=== PATIENT | female | born 1975 | race American Indian/Alaskan Native ===

== ENCOUNTER 2018-10-11 11:07 | Emergency (ER) | payer MEDICARE ==
[2018-10-11] MEDS ORDERED: NACL 0.9% 1000 ML 1,000 ML IV ONE ×2 (11:54→14:15)
[2018-10-11] MEDS ORDERED: ZOFRAN IV ONE (11:55)
[2018-10-11 12:17] LABS: Basophils % (Auto) 0.5 % (0.0-1.8); Eosinophils % (Auto) 0.1 % (0.0-4.3); Hematocrit 38.6 % (30.3-42.9); Hemoglobin 13.3 gm/dl (10.1-14.3); Lymphocytes # (Auto) 0.6 K/mm3 (1.2-5.4); Lymphocytes % (Auto) 19.1 % (13.4-35.0); Mean Corpuscular HGB Conc 34 % (30-34); Mean Corpuscular Volume 88 fl (79-97); Monocytes # (Auto) 0.4 K/mm3 (0.0-0.8); Monocytes % (Auto) 12.3 % (0.0-7.3); Platelet Count 225 K/mm3 (140-440); Red Blood Count 4.38 M/mm3 (3.65-5.03); Red Cell Distribution Width 15.5 % (13.2-15.2)
[2018-10-11 12:25] LABS: INR 1.02 (0.87-1.13)
--- NOTE | 2018-10-11 12:39 | XRay Report ---
ABDOMEN, 2 views: History: Abdominal pain. There is no evidence of free air beneath the diaphragms. The gas pattern within the abdomen is unremarkable. There is no evidence of bowel dilatation, significant air-fluid levels, or pathologic calcifications. Organ shadows are unremarkable. IMPRESSION: Unremarkable abdomen.
[2018-10-11 12:40] LABS: Alanine Aminotransferase 16 units/L (7-56); Albumin 3.6 g/dL (3.9-5); BUN/Creatinine Ratio 13; Blood Urea Nitrogen 8 mg/dL (7-17); Calcium 8.8 mg/dL (8.4-10.2); Hemolysis Index 4
--- NOTE | 2018-10-11 12:40 | XRay Report ---
ROUTINE CHEST, TWO VIEWS: HISTORY: Weakness. The trachea, heart, mediastinal contour, lung gonzales and bony thorax are unremarkable. IMPRESSION: Unremarkable chest x-ray.
--- NOTE | 2018-10-11 12:42 | Emergency Department Report ---
HPI - General Chief Complaint: Weakness Time Seen by Provider: 10/11/18 11:36 - HPI HPI: 43 year-old female presents to the emergency department with a complaint of nausea and vomiting, shortness of breath, generalized body aches, abdominal pain, and generalized weakness that has been going on for the past 4 days. She has a past medical history of asthma, diabetes, anemia, HIV. She's been out all of her medications for the past 2 months. She has not taken anything for her symptoms prior to presentation. No recent travel or sick contacts at home. She denies any fever, chest pain, or diaphoresis. ED Past Medical Hx - Past Medical History Previous Medical History?: Yes Hx Diabetes: Yes Hx Asthma: Yes Hx HIV: Yes Additional medical history: anemia - Surgical History Past Surgical History?: Yes Additional Surgical History: apendectomy, c section - Social History Smoking Status: Never Smoker Substance Use Type: None - Medications Home Medications: Home Medications Medication Instructions Recorded Confirmed Last Taken Type Ondansetron [Zofran Odt] 4 mg PO Q8HR PRN #12 tab.rapdis 10/11/18 Unknown Rx ED Review of Systems ROS: Stated complaint: GENERAL ILLNESS Other details as noted in HPI Constitutional: weakness. denies: chills, fever Eyes: denies: eye pain, vision change ENT: denies: ear pain, throat pain Respiratory: shortness of breath. denies: wheezing Cardiovascular: denies: chest pain, edema Gastrointestinal: abdominal pain, nausea, vomiting Genitourinary: denies: dysuria, discharge Musculoskeletal: myalgia. denies: joint swelling Skin: denies: rash, lesions Neurological: denies: headache, numbness Physical Exam - Physical Exam Vital Signs: Vital Signs 10/11/18 11:21 Temperature 98.2 F Pulse Rate 75 Respiratory 16 Rate Blood Pressure 122/67 O2 Sat by Pulse 100 Oximetry Physical Exam: GENERAL: The patient is well-developed well-nourished. HENT: Normocephalic. Atraumatic. Patient has moist mucous membranes. EYES: Extraocular motions are intact. NECK: Supple. Trachea is midline. CHEST/LUNGS: Clear to auscultation. mild tachypnea but no accessory muscle use. No cough heard during exam. There is no respiratory distress noted. HEART/CARDIOVASCULAR: Regular. There is no tachycardia. There is no murmur. ABDOMEN: Abdomen is soft, nontender. Patient has normal bowel sounds. There is no abdominal distention. SKIN: Skin is warm and dry. NEURO: The patient is awake, alert, and oriented. The patient is cooperative. The patient has no focal neurologic deficits. The patient has normal speech. CN II - XII grossly intact. Normal gait. MUSCULOSKELETAL: There is no tenderness or deformity. There is no limitation range of motion. There is no evidence of acute injury. ED Course Vital Signs 10/11/18 11:21 Temperature 98.2 F Pulse Rate 75 Respiratory 16 Rate Blood Pressure 122/67 O2 Sat by Pulse 100 Oximetry ED Medical Decision Making - Lab Data Result diagrams: 10/11/18 11:57 10/11/18 11:57 - EKG Data -: EKG Interpreted by Me EKG shows normal: sinus rhythm, axis, intervals, QRS complexes (Q waves in the septal leads), ST-T waves Rate: normal - EKG Data When compared to previous EKG there are: previous EKG unavailable Interpretation: other (sinus rhythm, Q waves to the septal leads) - Radiology Data Radiology results: image reviewed interpreted by me: Chest xray does not show any pneumonia, pleural effusions, pneumothorax, or foca l consolidation. Abdominal x-ray shows nonspecific, non-obstructive bowel gas. - Medical Decision Making This patient presents with the complaint of generalized weakness, N/V, SOB, abd pain. She has not had any vomiting while in the ED. CXR and Abd x-rays are unremarkable. Labs have been mostly unremarkable as well including CBC, CMP, Lipase and U/A except for signs of dehydration with 80 ketones. She was given zofran and 2L of IVF. Vitals stable throughout her ED course. She was able to pass an oral challenge. After the treatments, the patient says she is feeling greatly improved. She was given a prescription for zofran and encouraged to increase oral intake. She was given outpatient referrals for PCP. She will return to the ED with any worsening of her symptoms or any acute distress. Regarding her weakness, it is generalized without any focal or lateralizing deficits. No complaints of any headache. I did not feel CT imaging of the head was necessary at this time. She says her SOB has resolved. No signs of any tachypnea or respiratory distress. She is afebrile. She is low on the Wells score criteria and PERC negative. - Differential Diagnosis viral syndrome, pneumonia, colitis, anemia Critical Care Time: No Critical care attestation.: If time is entered above; I have spent that time in minutes in the direct care of this critically ill patient, excluding procedure time. ED Disposition Clinical Impression: Dehydration, Shortness of breath, Generalized weakness Nausea & vomiting Qualifiers: Vomiting type: unspecified Vomiting Intractability: non-intractable Qualified Code(s): R11.2 - Nausea with vomiting, unspecified Disposition: DC- TO HOME OR SELFCARE Is pt being admited?: No Condition: Stable Instructions: Dehydration (ED), Acute Nausea and Vomiting (ED), Weakness (ED), Dyspnea (ED) Additional Instructions: Please follow up with a primary care physician in the next few days. Increase your rehydration. Return to the emergency Department with any worsening of your symptoms or any acute distress. Prescriptions: Ondansetron [Zofran Odt] 4 mg PO Q8HR PRN #12 tab.rapdis PRN Reason: Nausea Referrals: [facility] [Outside] - 2-3 Days CHET LOWE MD [Staff Physician] - 2-3 Days Time of Disposition: 16:00
[2018-10-11 14:02] LABS: Bacteria,Urine 1+ /HPF (Negative); Bilirubin,Urine NEG (Negative); Blood,Urine NEG (Negative); Color,Urine Amber (Yellow); Mucus,Urine FEW /HPF
[2018-10-11 14:51] VITALS: BP 111/63
== END 2018-10-11 16:19 | disposition home or self-care (01) ==
LOC: ED 11:07
DX: E86.0 Dehydration (principal); R06.02 Shortness of breath; R53.1 Weakness; D64.9 Anemia, unspecified; J45.909 Unspecified asthma, uncomplicated; Z90.89 Acquired absence of other organs
CPT/HCPCS: 36415; 71046; 74019; 80053; 81001; 82962; 83690; 84443; 84484; 84703; 85025; 85610; 93005; 93010; 96361; 96374; 99285; J2405; J7030

== ENCOUNTER 2018-10-17 18:40 | Emergency (ER) | payer MEDICARE ==
[2018-10-17] MEDS ORDERED: MORPHINE IV ONE (20:23)
[2018-10-17] MEDS ORDERED: ZOFRAN IV ONE (20:23)
[2018-10-17] MEDS ORDERED: NACL 0.9% 1000 ML 1,000 ML IV ONE (20:23)
--- NOTE | 2018-10-17 20:26 | Emergency Department Report ---
ED Abdominal Pain HPI - General Chief Complaint: Chest Pain Stated Complaint: N/V Time Seen by Provider: 10/17/18 20:17 Source: patient, EMS Mode of arrival: Stretcher Limitations: No Limitations - History of Present Illness Initial Comments: Patient is 43-year-old female with history of HIV/AIDS. Patient presented to the ER complaining of bilateral chest pain and epigastric pain for the last 3 days. Patient stated that she has been having some shortness of breath also. Patient is actively vomiting in the emergency room. Patient stated that she had chills last night with no fever. Patient stated that she is compliant with her medication. MD Complaint: abdominal pain Location: epigastric Migration to: no migration Severity scale (0 -10): 9 - Related Data Previous Rx's Medication Instructions Recorded Last Taken Type Ondansetron [Zofran Odt] 4 mg PO Q8HR PRN #12 tab.rapdis 10/11/18 Unknown Rx Allergies Allergy/AdvReac Type Severity Reaction Status Date / Time No Known Allergies Allergy Verified 10/11/18 11:21 ED Review of Systems ROS: Stated complaint: N/V Other details as noted in HPI Comment: All other systems reviewed and negative Constitutional: denies: chills, fever Respiratory: shortness of breath. denies: SOB with exertion, SOB at rest, wheezing Cardiovascular: chest pain. denies: palpitations, dyspnea on exertion, orthopnea Gastrointestinal: abdominal pain, nausea, vomiting. denies: diarrhea, constipation, hematemesis, melena, hematochezia Musculoskeletal: denies: back pain Neurological: denies: headache, weakness ED Past Medical Hx - Past Medical History Previous Medical History?: Yes Hx Diabetes: Yes Hx Asthma: Yes Hx HIV: Yes Additional medical history: anemia - Surgical History Past Surgical History?: Yes Additional Surgical History: apendectomy, c section - Social History Smoking Status: Never Smoker Substance Use Type: Marijuana - Medications Home Medications: Home Medications Medication Instructions Recorded Confirmed Last Taken Type Ondansetron [Zofran Odt] 4 mg PO Q8HR PRN #12 tab.rapdis 10/11/18 Unknown Rx ED Physical Exam - General Limitations: No Limitations General appearance: alert, in no apparent distress - Head Head exam: Present: atraumatic, normocephalic, normal inspection - Eye Eye exam: Present: normal appearance, PERRL - ENT ENT exam: Present: normal exam, normal orophraynx, mucous membranes moist - Neck Neck exam: Present: normal inspection, full ROM. Absent: tenderness, men ingismus, lymphadenopathy, thyromegaly - Respiratory Respiratory exam: Present: normal lung sounds bilaterally - Cardiovascular Cardiovascular Exam: Present: regular rate, normal rhythm, normal heart sounds - GI/Abdominal GI/Abdominal exam: Present: soft, normal bowel sounds. Absent: distended, tenderness, guarding, rebound, rigid, organomegaly, mass, bruit, pulsatile mass, hernia - Extremities Exam Extremities exam: Present: normal inspection, full ROM, normal capillary refill - Back Exam Back exam: Present: normal inspection, full ROM. Absent: tenderness, CVA tenderness (R), CVA tenderness (L), muscle spasm, paraspinal tenderness, vertebral tenderness - Neurological Exam Neurological exam: Present: alert, oriented X3, CN II-XII intact - Skin Skin exam: Present: warm, intact, normal color ED Course Vital Signs 10/17/18 10/17/18 10/17/18 19:32 20:00 21:00 Temperature 97.8 F Pulse Rate 74 68 70 Respiratory 26 H 19 18 Rate Blood Pressure 132/87 110/73 Blood Pressure 117/84 [Left] O2 Sat by Pulse 100 99 100 Oximetry 10/17/18 22:00 Temperature Pulse Rate 70 Respiratory 12 Rate Blood Pressure 131/73 Blood Pressure [Left] O2 Sat by Pulse 100 Oximetry ED Medical Decision Making - Lab Data Result diagrams: 10/17/18 19:49 10/17/18 19:49 - EKG Data -: EKG Interpreted by Vt EKG shows normal: sinus rhythm Rate: normal - EKG Data Interpretation: no acute changes - Radiology Data Radiology results: report reviewed Chest x-ray is unremarkable. CT abdomen and pelvis is negative for acute finding. - Medical Decision Making Patient is 43-year-old female with history of HIV/AIDS. Patient presented to the ER complaining of bilateral chest pain and epigastric pain for the last 3 days. Patient stated that she has been having some shortness of breath also. Patient is actively vomiting in the emergency room. Patient stated that she had chills last night with no fever. Patient stated that she is compliant with her medication. Patient received Zofran and morphine. Patient stated that she is feeling much better. Patient found to have potassium of 2.8 which is replaced by potassium chloride 20 mEq IV and [address] abdomen and pelvis is negative for acute finding. Chest x-ray is unremarkable. EKG was no ST elevation, troponin is negative. Patient advised to follow up with her primary care physician in the next 2-3 d ays and to return to the ER if symptoms are not improved. Critical care attestation.: If time is entered above; I have spent that time in minutes in the direct care of this critically ill patient, excluding procedure time. ED Disposition Clinical Impression: Nausea & vomiting, Abdominal pain, Chest pain, Hypokalemia Disposition: DC-01 TO HOME OR SELFCARE Is pt being admited?: No Condition: Stable Instructions: Chest Pain (ED) Referrals: SYED RAHMAN MD [Primary Care Provider] - 3-5 Days
[2018-10-17 20:28] LABS: Hematocrit 35.9 % (30.3-42.9); Hemoglobin 12.3 gm/dl (10.1-14.3); Mean Corpuscular HGB Conc 34 % (30-34); Mean Corpuscular Volume 88 fl (79-97); Platelet Count 190 K/mm3 (140-440); Red Blood Count 4.07 M/mm3 (3.65-5.03); Red Cell Distribution Width 15.6 % (13.2-15.2)
[2018-10-17 20:42] LABS: Basophils % (Auto) 0.5 % (0.0-1.8); Eosinophils % (Auto) 0.7 % (0.0-4.3); Lymphocytes # (Auto) 0.4 K/mm3 (1.2-5.4); Lymphocytes % (Auto) 16.1 % (13.4-35.0); Monocytes # (Auto) 0.4 K/mm3 (0.0-0.8); Monocytes % (Auto) 15.3 % (0.0-7.3)
[2018-10-17 20:45] LABS: BUN/Creatinine Ratio 15; Blood Urea Nitrogen 6 mg/dL (7-17); Calcium 8.3 mg/dL (8.4-10.2); Hemolysis Index 5
[2018-10-17] MEDS ORDERED: K-DUR PO ONE (21:20)
[2018-10-17] MEDS: KCL 10MEQ/100ML 10 MEQ/100 ML BAG IV SCH ×2 (21:59→23:39)
--- NOTE | 2018-10-17 22:11 | XRay Report ---
PROCEDURE: XR CHEST 1V AP TECHNIQUE: Chest radiograph single view. HISTORY: chest pain COMPARISONS: None . FINDINGS: Heart: Normal. Mediastinum/Vessels: Normal. Lungs/Pleural space: Normal. Bony thorax: No acute osseous abnormality. Life support devices: None. IMPRESSION: No acute cardiopulmonary abnormality. This document is electronically signed by Kunal Jones MD., October 17 2018 11:09:27 PM ET
[2018-10-17 22:22] LABS: HCG Qualitative,Urine Negative (Negative)
[2018-10-17 22:25] LABS: Bacteria,Urine 4+ /HPF (Negative); Mucus,Urine 3+ /HPF
[2018-10-17 22:27] LABS: RBC,Urine > 182.0 /HPF (0.0-6.0)
[2018-10-17 22:37] LABS: Bilirubin,Urine NEG (Negative); Blood,Urine LG (Negative); Color,Urine Red (Yellow)
--- NOTE | 2018-10-17 23:14 | Cat Scan Report ---
PROCEDURE: CT abdomen and pelvis with contrast. TECHNIQUE: Computerized axial tomography of the abdomen and pelvis was performed after the IV inject ion of iodinated nonionic contrast. CT DOSE LENGTH PRODUCT: Not provided mGycm HISTORY: Abdominal pain. COMPARISONS: None. FINDINGS: The lung bases are clear. There are no pleural effusions. The heart size is normal. The liver, pancre as and spleen appear normal. Cholecystectomy clips are present. There is no biliary dilatation. The a drenal glands are not enlarged. Both kidneys appear normal in size and configuration. The abdominal a cesar has a normal caliber. There is no retroperitoneal adenopathy. The unopacified gastrointestinal t ract is unremarkable. The appendix has probably been removed. The bladder, uterus and adnexal regions are unremarkable. The regional skeleton appears intact. IMPRESSION: Previous cholecystectomy. No evidence of acute disease in the abdomen or pelvis. This document is electronically signed by Nathaniel Mejía MD., October 18 2018 12:12:40 AM ET
[2018-10-17] MEDS ORDERED: ROCEPHIN/NS 1 GM/50 ML 1 GM/50 ML BAG IV ONE (23:28)
[2018-10-17 23:53] VITALS: BP 129/62
[2018-10-17] MEDS ORDERED: TORADOL IV ONE (23:57)
[2018-10-18] MEDS ORDERED: NACL 0.9% 500 ML 500 ML ONE (00:02)
== END 2018-10-18 01:44 | disposition home or self-care (01) ==
LOC: ED 18:40
DX: R11.2 Nausea with vomiting, unspecified (principal); R10.13 Epigastric pain; R07.89 Other chest pain; E87.6 Hypokalemia; Z21 Asymptomatic human immunodeficiency virus [HIV] infection status; E11.9 Type 2 diabetes mellitus without complications; J45.909 Unspecified asthma, uncomplicated; F12.10 Cannabis abuse, uncomplicated; Z90.49 Acquired absence of other specified parts of digestive tract; Z86.2 Personal history of diseases of the blood and blood-forming organs and certain disorders involving the immune mechanism
CPT/HCPCS: 36415; 71045; 74177; 80048; 81001; 81025; 82962; 83690; 84484; 85025; 87076; 87086; 87186; 93005; 93010; 96361; 96365; 96366; 96367; 96375; 99285; J0696; J1885; J2270; J2405; J3480; J7030; J7040; Q9967